=== PATIENT | male | born 1960 | race Caucasian/White ===

== ENCOUNTER 2018-08-31 12:54 | Inpatient (IN) | payer SELFPAY ==
[2018-08-31] MEDS ORDERED: Ondansetron PF 4 MG/2 ML Vial IVP PRN (14:49)
[2018-08-31] MEDS ORDERED: Acetaminophen 650 MG Suppository PR PRN (14:49)
[2018-08-31] MEDS ORDERED: Senokot S 8.6-50 MG TAB PO PRN (14:49)
[2018-08-31] MEDS ORDERED: Bisacodyl 5 MG TAB PO PRN (14:49)
[2018-08-31] MEDS ORDERED: Diltiazem 125 MG in Sodium Chloride 0.9% 100 ML IVPB PRN ×2 (14:53→19:30)
[2018-08-31] MEDS ORDERED: hydrALAZINE 20 MG/ML VIAL SLOW IVP PRN (14:54)
--- NOTE | 2018-08-31 15:56 | HP ---
PRIMARY CARE PROVIDER: Dr. Jorge Davidson in [place], [place]. CHIEF COMPLAINT: Generalized weakness. HISTORY OF PRESENT ILLNESS: Mr. Lira is a pleasant 57-year-old gentleman, who was seen at [facility] on 08/31/2018 following transfer from [facility] in [place]. He reports that he has had on and off palpitations in the past. He has woken up at night because of palpitations. He also reports that when he checks his blood pressure, occasionally the heart rate is around 100. Over the last week or so, he has been feeling weak. He has not been eating well because of decreased appetite. He also reports constipation over the last couple of days. He feels dehydrated. He therefore went to the emergency room. At the emergency room, he was found to be in atrial fibrillation with rapid ventricular response and was transferred to [facility] for further management. REVIEW OF SYSTEMS: All other systems reviewed and found to be negative. PAST MEDICAL HISTORY: Hypertension. PAST SURGICAL HISTORY: None. FAMILY HISTORY: Myocardial infarction in his paternal grandfather. SOCIAL HISTORY: No history of tobacco use or recreational drug use. The patient reports that he drinks at least 6 beers a day. ALLERGIES: NO KNOWN DRUG ALLERGIES. CURRENT MEDICATIONS: He takes clonidine 0.2 mg daily, 0.1 mg at noon, and 0.1 mg at bedtime. PHYSICAL EXAMINATION: GENERAL: Mr. Lira is awake and alert, not in acute distress. VITAL SIGNS: Blood pressure is 143/74, pulse 124, respiratory rate 20, and oxygen saturation 97% on room air. Temperature is 99 degrees Fahrenheit. EYES: No scleral icterus. No conjunctival pallor. ENT: Moist mucosal membranes. No oropharyngeal erythema or exudates. NECK: Supple, nontender, trachea is midline. RESPIRATORY: Accessory muscles of breathing are not active. Chest wall movements are symmetric bilaterally. Lungs are clear to auscultation without wheeze, rhonchi, or crepitations. CARDIOVASCULAR: S1 and S2 are heard, tachycardic and irregular. Peripheral pulses palpable. No carotid bruit. No pericardial rub. ABDOMEN: Soft, nontender. Bowel sounds heard. No hepatomegaly. No splenomegaly. NEUROLOGIC: Cranial nerves 2 through 12 are intact. Deep tendon reflexes 2+. MUSCULOSKELETAL: Power is 5/5 in all four extremities. He has trace edema over the left lateral malleolus. SKIN: No rashes or subcutaneous nodules. LYMPHATIC: No cervical lymphadenopathy. PSYCHIATRIC: Normal mood. Normal affect. The patient is oriented to person, place, and time. LABORATORY AND DIAGNOSTIC DATA: Mr. Lira's labs and investigations were reviewed. I reviewed his electrocardiogram, which shows atrial fibrillation with rapid ventricular response. No ST changes to suggest an acute coronary syndrome. I also reviewed his chest x-ray, which does not show any pulmonary infiltrates. He had negative strep A test, negative flu test, negative RSV test, negative mono test. INR is 1.0. Urinalysis is positive for ketones, blood, and urobilinogen; negative for nitrite or leukocyte esterase. Glucose is 130. Creatinine is normal at 0.9. Sodium is normal at 133. AST is mildly elevated at 47. Total bilirubin is normal. Gamma-glutamyltransferase is mildly elevated at 81. ASSESSMENT AND PLAN: Mr. Lira is a pleasant 57-year-old gentleman, who was seen at [facility] on 08/31/2018. His problem list includes: 1. Atrial fibrillation with rapid ventricular response: Mr. Lira is presenting with atrial fibrillation with rapid ventricular response. He has been started on a Cardizem drip. He has also been started on therapeutic Lovenox. I will continue both of these medications. I will check his 2D echocardiogram. We will consult Cardiology Service for opinion and help with further management. 2. Abnormal liver function tests: Likely secondary to alcohol abuse. 3. Alcohol abuse: The patient has been counseled regarding alcohol cessation. We will start the patient on protocol. 4. Hypertension: We will resume the patient's home medications, monitor vital signs and titrate antihypertensives as needed. Many thanks for allowing me to participate in your patient's care. Please feel free to contact me with any questions or concerns. LEVEL OF RISK: High. LEVEL OF COMPLEXITY: High. Job ID: [id number]
[2018-08-31] MEDS: Digoxin 0.25 MG TAB PO SCH ×2 (17:28→23:21)
--- NOTE | 2018-08-31 17:28 | CON ---
DATE OF CONSULTATION: REASON FOR CONSULTATION: Atrial fibrillation. HISTORY OF PRESENT ILLNESS: Mr. Lira is a pleasant 57-year-old gentleman, no previous cardiac history, who presents to an outlying emergency room with weakness, fatigue, and decreased appetite. No chest pain, pressure, shortness of breath, or other associated symptoms. He was found to be in atrial fibrillation with RVR and transferred to [facility] for further disposition. He was placed on IV Cardizem. He is currently on 50 mg IV per hour. PAST MEDICAL HISTORY: Hypertension. SOCIAL HISTORY: No current tobacco or alcohol use. ALLERGIES: NONE. HOME MEDICATIONS: Include clonidine. REVIEW OF SYSTEMS: Ten point review of systems reviewed and was negative. PHYSICAL EXAMINATION: GENERAL: Patient is a pleasant 57-year-old gentleman who is in no acute distress. The patient appears their stated age. VITAL SIGNS: Blood pressure 116/66, pulse 117, temperature 98.6. NEUROLOGIC: The patient is alert and oriented x3 with no focal neurologic deficits. HEENT: Sclerae without icterus. Mouth has moist mucous membranes with normal pallor. NECK: No JVD. Carotid upstroke brisk. No bruits bilaterally. LUNGS: Clear to auscultation with unlabored respirations. BACK: No scoliosis or kyphosis. CARDIAC: Irregularly irregular. ABDOMEN: Soft, nontender, nondistended. No peritoneal signs present. No hepatosplenomegaly. No abnormal striae. EXTREMITIES: 2+ femoral and 2+ dorsalis pedis pulses. No cyanosis, clubbing, or edema. SKIN: No gross abnormalities. PERTINENT LABORATORY DATA: None. EKG shows atrial fibrillation with rapid ventricular response. IMPRESSION: 1. New onset atrial fibrillation. 2. Hypertension. RECOMMENDATIONS: Mr. Lira's [id number] score is 1. I did discuss anticoagulation therapy. 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 We will have further discussions tomorrow. We will add Cardizem p.o. and adjust accordingly. Would also recommend echo Doppler. Labs have been performed by physician in ER and we will review. He also drinks a 6-pack to 12-pack of alcohol per day. I counseled him on decreasing his consumption and stopping his consumption. Other recommendations pending the above. Job ID: [id number]
[2018-08-31] MEDS: cloNIDine 0.1 MG TAB PO SCH (20:32)
[2018-08-31] MEDS: Enoxaparin Sodium 80 MG/0.8 ML SYRINGE SC SCH (20:32)
[2018-08-31 23:08] LABS: Platelet Count 167 thou/uL (130-400)
[2018-08-31 23:21] LABS: Calc. Creatinine Clearance 110 mL/min (70-130); Estimated GFR-MDRD Greater than 90
[2018-09-01 06:06] LABS: Anion Gap 15 mmol/L (10-20); BUN (Urea Nitrogen) 12 mg/dL (8.4-25.7); Calc. Creatinine Clearance 119 mL/min (70-130); Calcium 9.2 mg/dL (7.8-10.44); Carbon Dioxide 25 mmol/L (22-29); Chloride 98 mmol/L (98-107); Estimated GFR-MDRD Greater than 90; Glucose 111 mg/dL (70-105); Potassium 3.9 mmol/L (3.5-5.1); Sodium 134 mmol/L (136-145)
[2018-09-01 06:07] LABS: Band 5 % (5-11); Eosinophils 2 % (0-10); Hemoglobin 14.3 g/dL (14.0-18.0); Lymphocytes 10 % (21-51); MDiff Complete? YES; Mean Corpuscular HGB CONC 35.2 g/dL (32.0-36.0); Mean Corpuscular Hemoglobin 32.3 pg (27.0-31.0); Mean Corpuscular Volume 91.8 fL (78.0-98.0); Mean Platelet Volume 8.1 fL (7.4-10.4); Monocytes 15 % (0-10); Neutrophil 65 % (42-75); PLT Morphology Comment Appears Adequate; Platelet Count 177 thou/uL (130-400); RBC Distribution Width 11.1 % (11.5-14.5); RBC Morphology Normal; Reactive Lymphocytes 3 % (0-10); Red Blood Cell (RBC) Count 4.43 mill/uL (4.70-6.10); White Blood Cell (WBC) Count 4.3 thou/uL (4.8-10.8)
[2018-09-01] MEDS: Digoxin 0.25 MG TAB PO SCH ×2 (06:13→12:08)
[2018-09-01] MEDS: cloNIDine 0.2 MG TAB PO SCH (08:56)
[2018-09-01] MEDS: Enoxaparin Sodium 80 MG/0.8 ML SYRINGE SC SCH ×2 (08:57→21:16)
--- NOTE | 2018-09-01 10:21 | PDOC.CTH ---
Cardiology Progress Note - Subjective Patient without overnight events. Tele reviewed. Has been AFlutter since admit. Getting ECHO now. - Objective Vital Signs Temp Pulse Resp BP BP BP Pulse Ox 09/01/18 08:56 129/61 09/01/18 08:50 98.5 F 60 16 129/61 96 09/01/18 06:13 87 09/01/18 03:46 98.9 F 87 18 127/75 98 09/01/18 00:15 89 16 119/67 96 08/31/18 23:21 91 Weight 177 lb 9.6 oz 08/31/18 09/01/18 09/02/18 06:59 06:59 06:59 Intake Total 1878 Output Total 2800 Balance -922 - Physical Examination General/Neuro: alert & oriented x3 Lungs: unlabored respirations Heart: other: (IRR) - Telemetry Telemetry Rhythm: AFlutter - Labs Result Diagrams: 09/01/18 04:33 09/01/18 04:33 - Assessment/Plan 1. New-Onset AFlutter 2. HTN Stable. ECHO pending. Will discuss with Dr. Mascorro. Initial EKG looked more like AF, but now patient in consistent flutter with variable block. Would benefit from RFA and 1 month NOAC, but with holiday will need to check EP schedule. Could consider CORTEZ/DCCV. Rate-controlled. Wean IV cardizem to po as tolerated. Pt seen and examined. Discussed with pt on CORTEZ/CV vs ablation. Pt prefers ablation. Dr. Bradford not available for non-emergencies until Sun. Pt understands. Continue with rate control.
[2018-09-01] MEDS ORDERED: Metoprolol Tartrate 25 MG TAB PO SCH (11:00)
[2018-09-01] MEDS ORDERED: Diltiazem 125 MG in Sodium Chloride 0.9% 100 ML IVPB PRN (12:00)
[2018-09-01] MEDS: cloNIDine 0.1 MG TAB PO SCH ×2 (12:07→21:28)
--- NOTE | 2018-09-01 13:14 | PDOC.PN ---
- Subjective Encounter Start Date: 09/01/18 Encounter Start Time: 07:00 Pt seen for followup re: atrial flutter. Denies chest pain or shortness of breath. Reports good appetite. - Objective MAR Reviewed: Yes Vital Signs & Weight: Vital Signs (12 hours) Temp Pulse Resp BP BP BP Pulse Ox 09/01/18 12:08 87 09/01/18 12:07 115/62 09/01/18 08:56 129/61 09/01/18 08:50 98.5 F 60 16 129/61 96 09/01/18 06:13 87 09/01/18 03:46 98.9 F 87 18 127/75 98 Weight Weight 177 lb 9.6 oz I&O: 08/31/18 09/01/18 09/02/18 06:59 06:59 06:59 Intake Total 1878 Output Total 2800 Balance -922 Result Diagrams: 09/01/18 04:33 09/01/18 04:33 EKG Reviewed by me: Yes (Tele: atrial flutter) Phys Exam - Physical Examination Constitutional: NAD HEENT: moist MMs, sclera anicteric, oral pharynx no lesions, 2+ tonsils Neck: no nodes, no JVD, supple, full ROM Respiratory: no wheezing, no rales, no rhonchi, clear to auscultation bilateral Cardiovascular: no rub, irregular S1, S2 Gastrointestinal: soft, non-tender, no distention, positive bowel sounds Neurological: moves all 4 limbs Psychiatric: normal affect, A&O x 3 Dx/Plan (1) Atrial flutter Code(s): I48.92 - UNSPECIFIED ATRIAL FLUTTER Status: Acute Comment: will likely need EP eval/ablation. (2) Alcohol abuse Code(s): F10.10 - ALCOHOL ABUSE, UNCOMPLICATED Status: Chronic Comment: continue ASE protocol (3) HTN (hypertension) Code(s): I10 - ESSENTIAL (PRIMARY) HYPERTENSION Status: Chronic Comment: controlled - Plan * . Review of Systems - Review of Systems Constitutional: weakness. negative: fever, chills, sweats, malaise Respiratory: negative: Cough, Shortness of Breath, SOB with Excertion, Pleuritic Pain, Wheezing Cardiovascular: negative: chest pain, palpitations, orthopnea, paroxysmal nocturnal dyspnea, edema, light headedness Gastrointestinal: negative: Nausea, Vomiting, Abdominal Pain, Diarrhea, Constipation, Melena, Hematochezia Genitourinary: negative: Dysuria, Frequency, Incontinence, Hematuria, Retention Skin: negative: Rash, Lesions, [place], Bruising - Medications/Allergies Allergies/Adverse Reactions: Allergies Allergy/AdvReac Type Severity Reaction Status Date / Time No Known Drug Allergies Allergy Verified 08/31/18 14:49 Medications: Current Medications Acetaminophen (Tylenol) 650 mg PO Q4H PRN PRN Reason: Headache/Fever/Mild Pain (1-3) Acetaminophen (Tylenol) 650 mg ND Q4H PRN PRN Reason: Headache/Fever/Mild Pain (1-3) Bisacodyl (Dulcolax) 10 mg PO DAILYPRN PRN PRN Reason: Constipation Clonidine (Catapres) 0.1 mg PO 1200 [facility] Last Admin: 09/01/18 12:07 Dose: 0.1 mg Clonidine (Catapres) 0.1 mg PO HS [facility] Last Admin: 08/31/18 20:32 Dose: 0.1 mg Clonidine (Catapres) 0.2 mg PO DAILY-[facility] Last Admin: 09/01/18 08:56 Dose: 0.2 mg Diltiazem HCl (Cardizem) 90 mg PO Q6HR [facility] Last Admin: 09/01/18 12:08 Dose: 90 mg Enoxaparin Sodium (Lovenox) 80 mg SC 0900,2100 [facility] Last Admin: 09/01/18 08:57 Dose: 80 mg Hydralazine HCl (Apresoline) 10 mg SLOW IVP Q6H PRN PRN Reason: SBP Greater Than 170 Diltiazem HCl 125 mg/ Sodium (Chloride) 125 mls @ 5 mls/hr IVPB INF PRN PRN Reason: For HR>120 sustained Metoprolol Tartrate (Lopressor) 25 mg PO BID [facility] Ondansetron HCl (Zofran) 4 mg IVP Q6H PRN PRN Reason: Nausea/Vomiting Senna/Docusate Sodium (Senokot S) 2 tab PO BID PRN PRN Reason: Constipation
[2018-09-01] MEDS ORDERED: Sodium Chloride 0.9% 10 ML ONE (16:04)
[2018-09-01] MEDS: Metoprolol Tartrate 25 MG TAB PO SCH (21:17)
[2018-09-01] MEDS: Acetaminophen 325 MG TAB PO PRN (21:17)
[2018-09-02 05:44] LABS: #Lymphocytes 1.5 thou/uL (1.20-3.40); #Monocytes 0.9 thou/uL (0.11-0.59); #Neutrophils 5.1 thou/uL (1.40-6.50); %Basophils 0.2 % (0.0-1.0); %Eosinophils 0.6 % (0.0-10.0); %Lymphocytes 19.6 % (21.0-51.0); %Monocytes 11.5 % (0.0-10.0); %Neutrophils 68.1 % (42.0-75.0); Hemoglobin 14.3 g/dL (14.0-18.0); Mean Corpuscular HGB CONC 35.6 g/dL (32.0-36.0); Mean Corpuscular Hemoglobin 32.6 pg (27.0-31.0); Mean Corpuscular Volume 91.7 fL (78.0-98.0); Mean Platelet Volume 7.9 fL (7.4-10.4); Platelet Count 243 thou/uL (130-400); RBC Distribution Width 11.2 % (11.5-14.5); Red Blood Cell (RBC) Count 4.39 mill/uL (4.70-6.10); White Blood Cell (WBC) Count 7.4 thou/uL (4.8-10.8)
[2018-09-02 05:58] LABS: Anion Gap 13 mmol/L (10-20); BUN (Urea Nitrogen) 16 mg/dL (8.4-25.7); Calc. Creatinine Clearance 109 mL/min (70-130); Calcium 8.7 mg/dL (7.8-10.44); Carbon Dioxide 27 mmol/L (22-29); Chloride 96 mmol/L (98-107); Estimated GFR-MDRD Greater than 90; Glucose 118 mg/dL (70-105); Potassium 3.8 mmol/L (3.5-5.1); Sodium 132 mmol/L (136-145)
[2018-09-02] MEDS: Acetaminophen 325 MG TAB PO PRN ×3 (06:35→20:04)
[2018-09-02] MEDS: Metoprolol Tartrate 25 MG TAB PO SCH ×2 (09:02→20:03)
[2018-09-02] MEDS: cloNIDine 0.2 MG TAB PO SCH (09:02)
[2018-09-02] MEDS: Enoxaparin Sodium 80 MG/0.8 ML SYRINGE SC SCH ×2 (09:02→20:03)
[2018-09-02] MEDS: cloNIDine 0.1 MG TAB PO SCH ×2 (11:08→20:03)
--- NOTE | 2018-09-02 16:24 | PDOC.PN ---
- Subjective Encounter Start Date: 09/02/18 Encounter Start Time: 07:20 Pt seen for followup re: atrial flutter. Denies chest pain, shortness of breath , fevers or chills. - Objective MAR Reviewed: Yes Vital Signs & Weight: Vital Signs (12 hours) Temp Pulse Resp BP BP BP Pulse Ox 09/02/18 15:15 97.7 F 78 16 107/57 L 107/57 L 99 09/02/18 12:00 99.6 F 87 14 106/64 106/64 97 09/02/18 11:08 106/64 09/02/18 08:00 98.4 F 81 14 116/69 116/69 96 09/02/18 06:31 99.6 F 85 15 127/76 Weight Weight 175 lb 9.6 oz I&O: 09/01/18 09/02/18 09/03/18 06:59 06:59 06:59 Intake Total 1878 3062.5 Output Total 2800 2325 Balance -922 737.5 Result Diagrams: 09/03/18 05:53 09/03/18 05:53 EKG Reviewed by me: Yes (Tele: a. flutter) Phys Exam - Physical Examination Constitutional: NAD HEENT: moist MMs Neck: supple Respiratory: clear to auscultation bilateral Cardiovascular: irregular Gastrointestinal: soft Neurological: moves all 4 limbs Psychiatric: normal affect Dx/Plan (1) Atrial flutter Code(s): I48.92 - UNSPECIFIED ATRIAL FLUTTER Status: Acute Comment: awaiting EP eval/ablation. (2) Alcohol abuse Code(s): F10.10 - ALCOHOL ABUSE, UNCOMPLICATED Status: Chronic Comment: on ASE protocol (3) HTN (hypertension) Code(s): I10 - ESSENTIAL (PRIMARY) HYPERTENSION Status: Chronic Comment: controlled - Plan * . Review of Systems - Review of Systems Respiratory: negative: Cough, Shortness of Breath, Hemoptysis, Pleuritic Pain, Wheezing Cardiovascular: negative: chest pain, palpitations, orthopnea, paroxysmal nocturnal dyspnea, edema, light headedness - Medications/Allergies Allergies/Adverse Reactions: Allergies Allergy/AdvReac Type Severity Reaction Status Date / Time No Known Drug Allergies Allergy Verified 08/31/18 14:49 Medications: Current Medications Acetaminophen (Tylenol) 650 mg PO Q4H PRN PRN Reason: Headache/Fever/Mild Pain (1-3) Last Admin: 09/02/18 11:09 Dose: 650 mg Acetaminophen (Tylenol) 650 mg [place] Q4H PRN PRN Reason: Headache/Fever/Mild Pain (1-3) Bisacodyl (Dulcolax) 10 mg PO DAILYPRN PRN PRN Reason: Constipation Clonidine (Catapres) 0.1 mg PO 1200 [facility] Last Admin: 09/02/18 11:08 Dose: Not Given Clonidine (Catapres) 0.1 mg PO HS [facility] Last Admin: 09/01/18 21:28 Dose: Not Given Clonidine (Catapres) 0.2 mg PO DAILY-AC [facility] Last Admin: 09/02/18 09:02 Dose: 0.2 mg Diltiazem HCl (Cardizem) 90 mg PO Q6HR [facility] Last Admin: 09/02/18 11:08 Dose: 90 mg Enoxaparin Sodium (Lovenox) 80 mg SC 0900,2100 [facility] Last Admin: 09/02/18 09:02 Dose: 80 mg Hydralazine HCl (Apresoline) 10 mg SLOW IVP Q6H PRN PRN Reason: SBP Greater Than 170 Diltiazem HCl 125 mg/ Sodium (Chloride) 125 mls @ 5 mls/hr IVPB INF PRN PRN Reason: For HR>120 sustained Metoprolol Tartrate (Lopressor) 25 mg PO BID [facility] Last Admin: 09/02/18 09:02 Dose: 25 mg Ondansetron HCl (Zofran) 4 mg IVP Q6H PRN PRN Reason: Nausea/Vomiting Senna/Docusate Sodium (Senokot S) 2 tab PO BID PRN PRN Reason: Constipation
--- NOTE | 2018-09-02 21:08 | PDOC.CTH ---
Cardiology Progress Note - Subjective No new issues. - Objective Vital Signs Temp Pulse Resp BP BP BP Pulse Ox 09/02/18 15:15 97.7 F 78 16 107/57 L 107/57 L 99 09/02/18 12:00 99.6 F 87 14 106/64 106/64 97 09/02/18 11:08 106/64 Weight 175 lb 9.6 oz 09/01/18 09/02/18 09/03/18 06:59 06:59 06:59 Intake Total 1878 3062.5 1200 Output Total 2800 2325 1350 Balance -922 737.5 -150 - Physical Examination General/Neuro: alert & oriented x3, NAD Neck: no JVD present Lungs: unlabored respirations Heart: other: (Irreg) Abdomen: NT/ND Extremities: other: (no edema) - Telemetry Telemetry Rhythm: Aflutter HR 80's. - Labs Result Diagrams: 09/02/18 04:49 09/02/18 04:49 - Assessment/Plan 1. New-Onset AFlutter 2. HTN PLAN: - EP to do aflutter ablation Sunday. - Continue full anticoagulation.
[2018-09-02 23:03] LABS: Hemoglobin 13.3 g/dL (14.0-18.0); Platelet Count 281 thou/uL (130-400)
[2018-09-02 23:23] LABS: Calc. Creatinine Clearance 107 mL/min (70-130); Estimated GFR-MDRD Greater than 90
[2018-09-03 06:22] LABS: #Eosinphils 0.1 thou/uL (0.0-0.7); #Lymphocytes 2.1 thou/uL (1.20-3.40); #Monocytes 0.9 thou/uL (0.11-0.59); #Neutrophils 4.1 thou/uL (1.40-6.50); %Basophils 0.1 % (0.0-1.0); %Lymphocytes 28.9 % (21.0-51.0); %Monocytes 12.7 % (0.0-10.0); %Neutrophils 57.4 % (42.0-75.0); Hemoglobin 14.7 g/dL (14.0-18.0); Mean Corpuscular HGB CONC 34.9 g/dL (32.0-36.0); Mean Corpuscular Hemoglobin 32.2 pg (27.0-31.0); Mean Corpuscular Volume 92.4 fL (78.0-98.0); Mean Platelet Volume 7.3 fL (7.4-10.4); Platelet Count 313 thou/uL (130-400); RBC Distribution Width 11.2 % (11.5-14.5); Red Blood Cell (RBC) Count 4.55 mill/uL (4.70-6.10); White Blood Cell (WBC) Count 7.2 thou/uL (4.8-10.8)
[2018-09-03 06:47] LABS: Anion Gap 11 mmol/L (10-20); BUN (Urea Nitrogen) 10 mg/dL (8.4-25.7); Calc. Creatinine Clearance 111 mL/min (70-130); Calcium 9.3 mg/dL (7.8-10.44); Carbon Dioxide 28 mmol/L (22-29); Chloride 98 mmol/L (98-107); Estimated GFR-MDRD Greater than 90; Glucose 113 mg/dL (70-105); Potassium 3.9 mmol/L (3.5-5.1); Sodium 133 mmol/L (136-145)
[2018-09-03] MEDS ORDERED: Sodium Chloride 0.9% 10 ML ONE (09:12)
[2018-09-03] MEDS: cloNIDine 0.2 MG TAB PO SCH (10:42)
[2018-09-03] MEDS: Enoxaparin Sodium 80 MG/0.8 ML SYRINGE SC SCH ×2 (10:42→20:59)
[2018-09-03] MEDS: Metoprolol Tartrate 25 MG TAB PO SCH ×2 (10:42→21:11)
[2018-09-03] MEDS: cloNIDine 0.1 MG TAB PO SCH ×2 (13:13→22:00)
--- NOTE | 2018-09-03 14:02 | PDOC.PN ---
- Subjective Encounter Start Date: 09/03/18 Encounter Start Time: 07:20 Pt seen for followup re: atrial flutter. No complaints today. - Objective MAR Reviewed: Yes Vital Signs & Weight: Vital Signs (12 hours) Temp Pulse Resp BP BP BP Pulse Ox 09/03/18 13:13 125/74 09/03/18 12:00 98.6 F 83 18 125/74 09/03/18 10:42 115/73 09/03/18 08:00 98.4 F 81 18 124/73 97 09/03/18 04:00 115/73 09/03/18 03:21 98.1 F 80 14 115/73 95 Weight Weight 173 lb 5 oz I&O: 09/02/18 09/03/18 09/04/18 06:59 06:59 06:59 Intake Total 3062.5 2160 Output Total 2325 1550 Balance 737.5 610 Result Diagrams: 09/03/18 05:53 09/03/18 05:53 EKG Reviewed by me: Yes (Tele: [email or web address] perez) Phys Exam - Physical Examination Constitutional: NAD HEENT: moist MMs Neck: supple Respiratory: clear to auscultation bilateral Cardiovascular: RRR Gastrointestinal: soft Neurological: moves all 4 limbs Psychiatric: normal affect Dx/Plan (1) Atrial flutter Code(s): I48.92 - UNSPECIFIED ATRIAL FLUTTER Status: Acute Comment: awaiting EP eval/ablation tomorrow (2) Alcohol abuse Code(s): F10.10 - ALCOHOL ABUSE, UNCOMPLICATED Status: Chronic Comment: continue ASE protocol (3) HTN (hypertension) Code(s): I10 - ESSENTIAL (PRIMARY) HYPERTENSION Status: Chronic Comment: controlled - Plan * . Review of Systems - Review of Systems Cardiovascular: other. negative: chest pain, palpitations, orthopnea, paroxysmal nocturnal dyspnea, edema, light headedness Gastrointestinal: negative: Nausea, Vomiting, Abdominal Pain, Diarrhea, Constipation, Melena, Hematochezia - Medications/Allergies Allergies/Adverse Reactions: Allergies Allergy/AdvReac Type Severity Reaction Status Date / Time No Known Drug Allergies Allergy Verified 08/31/18 14:49 Medications: Current Medications Acetaminophen (Tylenol) 650 mg PO Q4H PRN PRN Reason: Headache/Fever/Mild Pain (1-3) Last Admin: 09/02/18 20:04 Dose: 650 mg Acetaminophen (Tylenol) 650 mg [place] Q4H PRN PRN Reason: Headache/Fever/Mild Pain (1-3) Bisacodyl (Dulcolax) 10 mg PO DAILYPRN PRN PRN Reason: Constipation Clonidine (Catapres) 0.1 mg PO 1200 [facility] Last Admin: 09/03/18 13:13 Dose: 0.1 mg Clonidine (Catapres) 0.1 mg PO HS [facility] Last Admin: 09/02/18 20:03 Dose: 0.1 mg Clonidine (Catapres) 0.2 mg PO DAILY-AC [facility] Last Admin: 09/03/18 10:42 Dose: 0.2 mg Diltiazem HCl (Cardizem) 90 mg PO Q6HR [facility] Last Admin: 09/03/18 13:12 Dose: 90 mg Enoxaparin Sodium (Lovenox) 80 mg SC 0900,2100 [facility] Last Admin: 09/03/18 10:42 Dose: 80 mg Hydralazine HCl (Apresoline) 10 mg SLOW IVP Q6H PRN PRN Reason: SBP Greater Than 170 Diltiazem HCl 125 mg/ Sodium (Chloride) 125 mls @ 5 mls/hr IVPB INF PRN PRN Reason: For HR>120 sustained Metoprolol Tartrate (Lopressor) 25 mg PO BID [facility] Last Admin: 09/03/18 10:42 Dose: 25 mg Ondansetron HCl (Zofran) 4 mg IVP Q6H PRN PRN Reason: Nausea/Vomiting Senna/Docusate Sodium (Senokot S) 2 tab PO BID PRN PRN Reason: Constipation
--- NOTE | 2018-09-03 17:18 | PDOC.CTH ---
Cardiology Progress Note - Subjective No new issues. Has been walking around without issues. - Objective Vital Signs Temp Pulse Resp BP BP BP Pulse Ox 09/03/18 16:00 98.1 F 83 16 109/62 109/62 96 09/03/18 13:13 125/74 09/03/18 12:00 98.6 F 83 18 125/74 125/74 09/03/18 10:42 115/73 09/03/18 08:00 98.4 F 81 18 124/73 124/73 97 Weight 173 lb 5 oz 09/02/18 09/03/18 09/04/18 06:59 06:59 06:59 Intake Total 3062.5 2160 Output Total 2325 1550 Balance 737.5 610 - Physical Examination General/Neuro: alert & oriented x3, NAD Neck: no JVD present Lungs: unlabored respirations Heart: RRR Abdomen: NT/ND Extremities: other: (no edema.) - Telemetry Telemetry Rhythm: A flutter. - Labs Result Diagrams: 09/03/18 05:53 09/03/18 05:53 - Assessment/Plan 1. New-Onset AFlutter 2. HTN PLAN: - EP to do aflutter ablation Tomorrow. - Continue full anticoagulation.
[2018-09-04] MEDS ORDERED: Sodium Chloride 0.9% 10 ML ONE (08:49)
[2018-09-04] MEDS: cloNIDine 0.2 MG TAB PO SCH (10:01)
[2018-09-04] MEDS: Metoprolol Tartrate 25 MG TAB PO SCH ×2 (10:02→20:01)
[2018-09-04] MEDS: Enoxaparin Sodium 80 MG/0.8 ML SYRINGE SC SCH ×2 (10:03→20:02)
--- NOTE | 2018-09-04 11:47 | CON ---
DATE OF CONSULTATION: 09/04/2018 This is an electrophysiology consultation report. REFERRING PHYSICIAN: Dr. David Mascorro. I am seeing Mr. 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 Newly found sustained atrial flutter with occasional rapid ventricular rates. 2. Such a normal heart with 2D echo on 09/01/2018 shows LVEF 55% to 60%, mild MR and TR. 3. Risk factors including hypertension. ALLERGIES: NONE NOTED. MEDICATIONS: At home included clonidine 0.1 mg daily. SUBJECTIVE: Mr. Lira is here after experiencing palpitations started on the day of the admission. He does have occasionally rapid heartbeat in the 100 range even before this for last week or so while he was checking his blood pressure and heart rate. He also had decreased appetite. Does report some constipation, appears somewhat dehydrated and came to the ER, admitted on the . He was found to be in atrial flutter and he required IV diltiazem for rate control. He seems to be doing better on this. Heart rates are better controlled, and his symptoms are moderated. He denies passing out. No stroke-like symptoms. No bleeding issues are documented. No fever, chills, or cough. REVIEW OF SYSTEMS: Rest of review of system otherwise unremarkable. PAST MEDICAL HISTORY: Prior history of heart attacks. The patient denies prior history of strokes or bleeding tendencies. History of hypertension. SOCIAL HISTORY: The patient has significant EtOH intake about 6 beers a day. Denies drug use. FAMILY HISTORY: Not contributory. OBJECTIVE: VITAL SIGNS: Blood pressure is 134/78, heart rate 80, respirations 16, temperature 98.6 degrees Fahrenheit, and O2 saturation 97%. GENERAL: Reveals an alert and oriented man, in no apparent distress. NECK: Supple. Jugular veins are not distended. CHEST: Coarse without crackles. HEART: Sounds are irregularly irregular. S1 and S2 are variable. No murmur or gallop. ABDOMEN: Benign. Bowel sounds positive. EXTREMITIES: Lower extremities without edema, clubbing, or cyanosis. Pulses are adequate. NEUROLOGIC: The patient is nonfocal. MUSCULOSKELETAL: Without joint swelling or deformity. SKIN: Without rash. DIAGNOSTIC DATA: EKGs reviewed revealing atypical atrial flutter now with variable AV conduction. LABORATORY DATA: White cell count is 7.2, hemoglobin is 14.7, platelet count is 313. Sodium 133, potassium 3.9, BUN is 10, and creatinine 0.81. ASSESSMENT AND PLAN: Mr. Lira is a pleasant 57-year-old man with prior history of hypertension, somewhat elevated EtOH use, who is here with newly found sudden atrial flutter with rapid rate. Again, we discussed the etiology of his arrhythmia. I discussed the benefits of conversion back to sinus rhythm. We discussed option of cardioversion or ablation, more interested in ablation to eliminate recurrences. We discussed also potential future atrial fibrillation as well the anticoagulation regimen and necessity of that was discussed. At this point, he is agreeable to undergoing a CORTEZ-guided ablation therapy. We will set up at a nearest date available. Risks and benefits of procedure discussed. CHADS-VASc score of 1 for now. Continue anticoagulation. Can be considered to be discharged on aspirin, if no clot seen on CORTEZ. History of EtOH use moderation advice. Job ID: [id number]
[2018-09-04] MEDS: Cephalexin 250 MG CAP PO SCH ×2 (12:36→17:07)
[2018-09-04] MEDS: cloNIDine 0.1 MG TAB PO SCH ×2 (12:39→20:01)
--- NOTE | 2018-09-04 13:11 | PDOC.CTH ---
Cardiology Progress Note - Subjective No complaints. Seen by EP today and scheduled for RFA tomorrow. Rate- controlled on tele. - Objective Vital Signs Temp Pulse Resp BP BP Pulse Ox 09/04/18 12:39 126/79 09/04/18 10:01 134/78 09/04/18 07:45 98 09/04/18 07:41 98.6 F 80 16 134/78 134/78 97 09/04/18 04:00 97.9 F 66 20 137/79 97 Weight 173 lb 1 oz 09/03/18 09/04/18 09/05/18 06:59 06:59 06:59 Intake Total 2160 3930 Output Total 1550 2550 Balance 610 1380 - Physical Examination General/Neuro: alert & oriented x3 Neck: no JVD present Lungs: CTA Heart: RRR Abdomen: NT/ND Extremities: other: (no edema) - Telemetry Telemetry Rhythm: AFlutter - Labs Result Diagrams: 09/03/18 05:53 09/03/18 05:53 - Assessment/Plan 1. Typical AFlutter 2. HTN Stable. Plan for CORTEZ/RFA tomorrow. No changes on my part. Can be discharged afterwards per EP recommendations.
--- NOTE | 2018-09-04 13:59 | PDOC.PN ---
- Subjective Encounter Start Date: 09/04/18 Encounter Start Time: 08:20 Pt seen for followup re; atrial flutter. c/o pain left cubital fossa. - Objective MAR Reviewed: Yes Vital Signs & Weight: Vital Signs (12 hours) Temp Pulse Resp BP BP Pulse Ox 09/04/18 12:39 126/79 09/04/18 10:01 134/78 09/04/18 07:45 98 09/04/18 07:41 98.6 F 80 16 134/78 134/78 97 09/04/18 04:00 97.9 F 66 20 137/79 97 Weight Weight 173 lb 1 oz I&O: 09/03/18 09/04/18 09/05/18 06:59 06:59 06:59 Intake Total 2160 3930 Output Total 1550 2550 Balance 610 1380 Result Diagrams: 09/03/18 05:53 09/03/18 05:53 EKG Reviewed by me: Yes (Tele: [email or web address]) Phys Exam - Physical Examination Constitutional: NAD HEENT: moist MMs Neck: supple Respiratory: clear to auscultation bilateral Cardiovascular: irregular Gastrointestinal: soft Neurological: moves all 4 limbs Psychiatric: normal affect Deviation from normal: skin infiltration, small blister left cubital fossa Dx/Plan (1) Atrial flutter Code(s): I48.92 - UNSPECIFIED ATRIAL FLUTTER Status: Acute Comment: for EP eval/ablation tomorrow (2) Alcohol abuse Code(s): F10.10 - ALCOHOL ABUSE, UNCOMPLICATED Status: Chronic Comment: on ASE protocol (3) HTN (hypertension) Code(s): I10 - ESSENTIAL (PRIMARY) HYPERTENSION Status: Chronic Comment: controlled - Plan * . start keflex for possible cellulitis r/o DVT LUE Review of Systems - Review of Systems Gastrointestinal: negative: Nausea, Vomiting, Abdominal Pain, Diarrhea, Constipation, Melena, Hematochezia Genitourinary: negative: Dysuria, Frequency, Incontinence, Hematuria, Retention Skin: Lesions - Medications/Allergies Allergies/Adverse Reactions: Allergies Allergy/AdvReac Type Severity Reaction Status Date / Time No Known Drug Allergies Allergy Verified 08/31/18 14:49 Medications: Current Medications Acetaminophen (Tylenol) 650 mg PO Q4H PRN PRN Reason: Headache/Fever/Mild Pain (1-3) Last Admin: 09/02/18 20:04 Dose: 650 mg Acetaminophen (Tylenol) 650 mg MS Q4H PRN PRN Reason: Headache/Fever/Mild Pain (1-3) Bisacodyl (Dulcolax) 10 mg PO DAILYPRN PRN PRN Reason: Constipation Last Admin: 09/04/18 10:02 Dose: 10 mg Cephalexin (Keflex) 500 mg PO Q6HR [facility] Last Admin: 09/04/18 12:36 Dose: 500 mg Clonidine (Catapres) 0.1 mg PO 1200 [facility] Last Admin: 09/04/18 12:39 Dose: 0.1 mg Clonidine (Catapres) 0.1 mg PO HS [facility] Last Admin: 09/03/18 22:00 Dose: Not Given Clonidine (Catapres) 0.2 mg PO DAILY-AC [facility] Last Admin: 09/04/18 10:01 Dose: 0.2 mg Diltiazem HCl (Cardizem) 90 mg PO Q6HR [facility] Last Admin: 09/04/18 13:56 Dose: 90 mg Enoxaparin Sodium (Lovenox) 80 mg SC 0900,2100 [facility] Last Admin: 09/04/18 10:03 Dose: 80 mg Hydralazine HCl (Apresoline) 10 mg SLOW IVP Q6H PRN PRN Reason: SBP Greater Than 170 Diltiazem HCl 125 mg/ Sodium (Chloride) 125 mls @ 5 mls/hr IVPB INF PRN PRN Reason: For HR>120 sustained Metoprolol Tartrate (Lopressor) 25 mg PO BID [facility] Last Admin: 09/04/18 10:02 Dose: 25 mg Ondansetron HCl (Zofran) 4 mg IVP Q6H PRN PRN Reason: Nausea/Vomiting Senna/Docusate Sodium (Senokot S) 2 tab PO BID PRN PRN Reason: Constipation Last Admin: 09/04/18 10:02 Dose: 2 tab
--- NOTE | 2018-09-04 17:41 | ULT ---
LEFT UPPER EXTREMITY VENOUS DOPPLER ULTRASOUND EVALUATION: HISTORY: Left upper extremity pain and swelling. TECHNIQUE: Multiple longitudinal and transverse images of the left upper extremity venous system was obtained us ing a Multi-Hertz linear array transducer. FINDINGS: Real-time, color-flow, and spectral wave-form Doppler analysis demonstrates the left internal jugular vein, the left subclavian vein, the axillary vein, and the left cephalic vein to be patent. There is some hyperechoic noncompressible clot seen in the left basilic vein, in the antecubital stephane a. The rest of the left basilic vein is patent. Normal flow is seen in the left brachial vein. Nor mal flow is seen in the left ulnar and radial veins. IMPRESSION: Focal area of clot seen in the left basilic vein, in the region of the antecubital fossa. POS: EMILY
[2018-09-04 23:04] LABS: Hemoglobin 13.9 g/dL (14.0-18.0); Platelet Count 396 thou/uL (130-400)
[2018-09-04 23:18] LABS: Calc. Creatinine Clearance 113 mL/min (70-130); Estimated GFR-MDRD Greater than 90
[2018-09-05] MEDS: Cephalexin 250 MG CAP PO SCH ×5 (01:06→23:33)
[2018-09-05] MEDS: Metoprolol Tartrate 25 MG TAB PO SCH ×2 (09:09→20:41)
[2018-09-05] MEDS: cloNIDine 0.2 MG TAB PO SCH (09:11)
[2018-09-05] MEDS: Enoxaparin Sodium 80 MG/0.8 ML SYRINGE SC SCH ×2 (09:11→20:41)
[2018-09-05] MEDS: cloNIDine 0.1 MG TAB PO SCH ×2 (11:47→20:41)
[2018-09-05] MEDS ORDERED: Heparin 10,000 UNITS/1 ML VIAL ONE (15:22)
[2018-09-05] MEDS ORDERED: Propofol 1,000 MG/100 ML VIAL IV ONE (15:23)
[2018-09-05] MEDS ORDERED: Fentanyl 100 MCG/2 ML VIAL ONE (15:35)
--- NOTE | 2018-09-05 16:06 | PDOC.PN ---
- Subjective Encounter Start Date: 09/05/18 Encounter Start Time: 10:00 Pt seen for followup re; atrial flutter. Denies chest pain, shortness of breath , fevers or chills. - Objective Vital Signs & Weight: Vital Signs (12 hours) Temp Pulse Resp BP BP BP Pulse Ox 09/05/18 11:42 98.3 F 72 16 134/81 98 09/05/18 09:11 126/82 09/05/18 08:05 97.9 F 90 16 136/72 136/72 98 Weight Weight 172 lb 10 oz I&O: 09/04/18 09/05/18 09/06/18 06:59 06:59 06:59 Intake Total 3930 2360 Output Total 2550 450 Balance 1380 1910 Result Diagrams: 09/04/18 22:52 09/04/18 22:52 Phys Exam - Physical Examination Constitutional: NAD HEENT: moist MMs Neck: supple Respiratory: clear to auscultation bilateral Cardiovascular: RRR Gastrointestinal: soft Neurological: moves all 4 limbs Psychiatric: normal affect Deviation from normal: left cubital fossa swelling Dx/Plan (1) Atrial flutter Code(s): I48.92 - UNSPECIFIED ATRIAL FLUTTER Status: Acute Comment: for EP eval/ablation today (2) Superficial thrombophlebitis of arm Code(s): I80.8 - PHLEBITIS AND THROMBOPHLEBITIS OF OTHER SITES Status: Acute Comment: with small superficial thrombosis. Pt has beens tarted on keflex. (3) Alcohol abuse Code(s): F10.10 - ALCOHOL ABUSE, UNCOMPLICATED Status: Chronic Comment: [facility] protocol (4) HTN (hypertension) Code(s): I10 - ESSENTIAL (PRIMARY) HYPERTENSION Status: Chronic Comment: controlled - Plan * . Review of Systems - Review of Systems Cardiovascular: negative: chest pain, palpitations, orthopnea, paroxysmal nocturnal dyspnea, edema, light headedness Gastrointestinal: negative: Nausea, Vomiting, Abdominal Pain, Diarrhea, Constipation, Melena, Hematochezia - Medications/Allergies Allergies/Adverse Reactions: Allergies Allergy/AdvReac Type Severity Reaction Status Date / Time No Known Drug Allergies Allergy Verified 08/31/18 14:49 Medications: Current Medications Acetaminophen (Tylenol) 650 mg PO Q4H PRN PRN Reason: Headache/Fever/Mild Pain (1-3) Last Admin: 09/02/18 20:04 Dose: 650 mg Acetaminophen (Tylenol) 650 mg GA Q4H PRN PRN Reason: Headache/Fever/Mild Pain (1-3) Bisacodyl (Dulcolax) 10 mg PO DAILYPRN PRN PRN Reason: Constipation Last Admin: 09/04/18 10:02 Dose: 10 mg Cephalexin (Keflex) 500 mg PO Q6HR [facility] Last Admin: 09/05/18 06:10 Dose: Not Given Clonidine (Catapres) 0.1 mg PO 1200 [facility] Last Admin: 09/05/18 11:47 Dose: Not Given Clonidine (Catapres) 0.1 mg PO HS [facility] Last Admin: 09/04/18 20:01 Dose: 0.1 mg Clonidine (Catapres) 0.2 mg PO DAILY-AC [facility] Last Admin: 09/05/18 09:11 Dose: Not Given Diltiazem HCl (Cardizem) 90 mg PO Q6HR [facility] Last Admin: 09/05/18 11:47 Dose: 90 mg Enoxaparin Sodium (Lovenox) 80 mg SC 0900,2100 [facility] Last Admin: 09/05/18 09:11 Dose: Not Given Hydralazine HCl (Apresoline) 10 mg SLOW IVP Q6H PRN PRN Reason: SBP Greater Than 170 Diltiazem HCl 125 mg/ Sodium (Chloride) 125 mls @ 5 mls/hr IVPB INF PRN PRN Reason: For HR>120 sustained Metoprolol Tartrate (Lopressor) 25 mg PO BID [facility] Last Admin: 09/05/18 09:09 Dose: 25 mg Ondansetron HCl (Zofran) 4 mg IVP Q6H PRN PRN Reason: Nausea/Vomiting Senna/Docusate Sodium (Senokot S) 2 tab PO BID PRN PRN Reason: Constipation Last Admin: 09/04/18 10:02 Dose: 2 tab
[2018-09-05] MEDS ORDERED: DOPamine 400 MG/D5W 250 ML 250 ML ONE (16:38)
[2018-09-05] MEDS ORDERED: PROPOFOL 20 ML ONE (16:53)
--- NOTE | 2018-09-05 22:42 | OP ---
DATE OF PROCEDURE: 09/05/2018 TYPE OF STUDY: Electrophysiology study and radiofrequency ablation report. REFERRING PHYSICIAN: Dr. Jesus. REASON FOR PROCEDURE: Mr. Lira is a 57-year-old man with a newly found atrial flutter, otherwise structurally normal heart, who has exacerbation during his hospital stay, here for ablation of the cavotricuspid isthmus, hence typical isthmus dependent flutter was documented on EKG. DESCRIPTION OF PROCEDURE: The patient received propofol by Anesthesia specialist. The right femoral venous area was prepped, draped, and anesthetized using subcutaneous lidocaine. With ultrasound guidance, the right femoral vein was cannulated x2. Two 8-[place] short sheaths were introduced. Through these, a ThermoCool SFST catheter was advanced to the right atrium and it was used to obtain a 3D right atrial Carto map and also a decapolar catheter was advanced through the CS position into the right atrium, right ventricle, and His bundlewas seeked and HV interval was also measured. Pacing and recording were obtained for each location. Following findings were found. The baseline rhythm is sinus rhythm with cycle length 731 milliseconds, GA 144, QRS 104, QT of 349 milliseconds, AH was 82, HV was 46 milliseconds. Sinus node recovery time was measured to 1378 with corrected 478 milliseconds. AV Wenckebach cycle length was 350 milliseconds. AV ana rosa ERP was achieved at 600/290 milliseconds and no dual AV ana rosa physiology was demonstrated. Burst atrial pacing failed to induce atrial arrhythmias. Hence, the typical isthmus dependent flutter at presentation, decision was made to perform a cavotricuspid isthmus ablation. During proximal CS pacing, the cavotricuspid isthmus ablation was performed, delivering total of 17 lesions with total ablation time 14 minutes and 45 seconds at 40 graff were delivered. The transfer site is increased from baseline 40 milliseconds to 150 milliseconds in the anterior portion of the isthmus and it is only 110 milliseconds in the posterior isthmus. Posterior conduction was clearly demonstrated on the activation mapping though. Burst atrial pacing post ablation did not induce atrial arrhythmias. Dopamine was administered at this point and the patency of isthmus line was rechecked. In the end of the case, the cardiac silhouette did not appear to have change. Sheaths were pulled in the propagator laborer. No complications noted. CONCLUSION: 1. Successful cavotricuspid isthmus ablation. 2. Borderline sinus ana rosa function. Monitor for Jerrod arrhythmias. 3. Normal His-Purkinje and AV ana rosa function. No evidence of accessory pathway. PLAN: Continue short-term anticoagulation and resume monitoring. Job ID: [id number] [facility]
[2018-09-06] MEDS: Cephalexin 250 MG CAP PO SCH ×2 (07:23→12:46)
[2018-09-06] MEDS: Enoxaparin Sodium 80 MG/0.8 ML SYRINGE SC SCH (08:50)
[2018-09-06] MEDS: Metoprolol Tartrate 25 MG TAB PO SCH (08:50)
[2018-09-06] MEDS: cloNIDine 0.2 MG TAB PO SCH (08:50)
--- NOTE | 2018-09-06 11:01 | PDOC.CTH ---
Cardiology Progress Note - Subjective EP PROGRESS NOTE: 09/06/18 Seen as follow up for atrial flutter. Has EPS with ablation yesterday afternoon. Doing well today. No pain at groin. No cardiac concerns or complaints. Feels ready to go home. - Objective Vital Signs Temp Pulse Resp BP BP Pulse Ox 09/06/18 08:50 131/79 09/06/18 08:48 98.2 F 77 16 131/79 96 09/06/18 08:00 131/79 09/06/18 07:45 96 09/06/18 04:00 98.3 F 70 18 134/80 98 09/05/18 23:30 98.8 F 66 16 112/67 112/67 99 Weight 176 lb 3.2 oz 09/05/18 09/06/18 09/07/18 06:59 06:59 06:59 Intake Total 2360 740 Output Total 450 200 Balance 1910 540 - Physical Examination General/Neuro: alert & oriented x3, NAD Neck: carotid US brisk, no JVD present Lungs: CTA, unlabored respirations Heart: PMI normal, RRR Abdomen: NT/ND, soft Other PE findings: groin site stable. no hematoma or bleeding - Telemetry Telemetry Rhythm: Sinus rhythm - Labs Result Diagrams: 09/04/18 22:52 09/04/18 22:52 - Assessment/Plan 1.Typical atrial flutter -s/p EPS and CTI ablation on 09/05/18. Not inducible for additional atrial arrhythmias - maintaining SR since ablation 2. Anticoagulation - Eliquis 5mg PO BID x 30 days post ablation then asa 81mg daily - will stop by [facility] clinic for 30 day supply 3.Phlebitis/Thrombophlebitis - superficial brachial clot per rad report. OK to dc home. [facility] follow up in 4-6 weeks will be arranged when he picks up Eliquis at the clinic today.
[2018-09-06] MEDS: cloNIDine 0.1 MG TAB PO SCH (11:44)
[2018-09-06 12:00] VITALS: BMI 26.0
[2018-09-06 16:31] VITALS: BP 121/70; TEMP 98.1
--- NOTE | 2018-09-07 06:32 | DIS ---
DATE OF ADMISSION: 08/31/2018 DATE OF DISCHARGE: 09/06/2018 CONSULTANTS: 1. Dr. David Mascorro, Cardiology Service. 2. Dr. Carlos Dick, Cardiology Service. 3. Dr. Víctor Bradford, Electrophysiology Service. HOSPITAL COURSE: The patient is a 57-year-old male, who was admitted to the hospital with generalized weakness. He was transferred from [facility] in [place] with above-mentioned complaints. Also, he reported on and off palpitations in the past and recently. His appetite was significantly decreased. He experienced constipation over the last few days prior to this admission. He felt dehydrated and he came to the emergency room for further evaluation. In the emergency room, he was found to be in atrial fibrillation with rapid ventricular response and was transferred to [facility] for further management. At the time of admission to hospital, his glucose was 130, creatinine was 0.9. Sodium 133, AST 47, total bilirubin was normal, gamma glutamyl transpeptidase was 81. Urinalysis showed positive for ketones, blood, and urobilinogen, and negative for nitrites and leukocyte esterase. His strep swab was negative. Flu test was negative. RSV test was negative. Ford test was negative. INR was 1.0. The EKG shows atrial fibrillation with rapid ventricular response. No ST changes to suggest acute coronary syndrome. The chest x-ray did not show any pulmonary infiltrates. He got admitted to the hospital. He was started on Cardizem drip and therapeutic dose of Lovenox. 2D echo was requested, and Cardiology consultation was requested. It was felt that the elevated liver function tests were likely related to his alcohol use. The patient was seen by Dr. Mascorro for cardiology evaluation, and he recommended to go with Cardizem p.o. and adjust dose accordingly. Apparently, the patient drinks 6 packs to 12 packs of alcohol per day. He was counseled on decreasing his consumption and stopping his consumption. His echocardiogram was done and it came back showing LVEF of 55% to 60%, mild mitral regurgitation, mild tricuspid regurgitation, and normal pulmonary artery pressure. Subsequently, he was seen by Dr. Dick for a cardiology followup since he started having some flutter on his EKGs. He was continued on full anticoagulation and the EP consult was requested. The patient was seen by Dr. Bradford and he recommended ablation with CORTEZ guide. In the mean time, the patient had some problem with the IV site in the left antecubital fossa where the IV was placed, and we did ultrasound on this area, which showed a clot in the left basilic vein. He was continued on full anticoagulation, but this kind of superficial phlebitis causing any embolic events, and the patient was informed about this. Subsequently, he underwent electrophysiology study and radiofrequency ablation and conclusion was successful caval tricuspid isthmus ablation. Also, there was borderline sinus ana rosa function and normal His-Purkinje and AV node function. There was no any evidence of accessory pathway. Dr. Bradford recommended to continue short-term anticoagulation after the procedure. He did well. He did not have any significant issues. He was cleared by Dr. Bradford today, who recommended to start him on Eliquis which is apixaban 5 mg twice a day. We are going to obtain samples from consumer science teacher's office for one month and then he will be switched to 81 mg of aspirin after that. His other medications at the time of discharge; 1. Cardizem CD 240 mg once a day. 2. Metoprolol 25 mg twice a day. 3. Clonidine 0.2 mg every morning and 0.1 mg at bedtime. 4. He will have prescription also for Keflex 500 mg q.6 hours for 7 days. His vitals at the time of discharge, blood pressure is 121/70, pulse is 73, temperature is 98.1, respiratory rate 16, and O2 saturation is 99% on room air. He is able to ambulate. ACTIVITIES: Activities as tolerated at the time of discharge. After he finished up per protocol, recommended activity. DIET: Heart healthy diet. FOLLOWUP: Follow up with primary doctor in 1 week. Follow up with Dr. Mascorro, his instrumentation and control technician, in 3 weeks, and to follow up with Dr. Bradford, consumer science teacher, in 1 month. The patient was seen and examined before his discharge. TIME SPENT: Discharge time is more than 30 minutes. Job ID: [id number]
== END 2018-09-06 18:09 | disposition home or self-care (01) | DRG 274 ==
LOC: 2NO 13:43
PROVIDERS: ADMIT Internal Medicine; ATTEND Internal Medicine
PROC: 02583ZZ Destruction of Conduction Mechanism, Percutaneous Approach (ICD-10-PCS; principal; 2018-09-05)
PROC: 4A023FZ Measurement of Cardiac Rhythm, Percutaneous Approach (ICD-10-PCS; 2018-09-05)
PROC: 4A0234Z Measurement of Cardiac Electrical Activity, Percutaneous Approach (ICD-10-PCS; 2018-09-05)
DX: I48.92 Unspecified atrial flutter (principal); I48.91 Unspecified atrial fibrillation; I10 Essential (primary) hypertension; Z79.899 Other long term (current) drug therapy; F10.10 Alcohol abuse, uncomplicated; I80.8 Phlebitis and thrombophlebitis of other sites
CPT/HCPCS: 36415; 76942; 80048; 82565; 84443; 85014; 85018; 85025; 85049; 87070; 87077; 87186; 87205; 93005; 93010; 93306; 93613; 93623; 93653; C1730; C1769; J1265; J1644; J1650; J2704; J3010; J7050